=== PATIENT | male | born 1965 | race Caucasian/White ===

== ENCOUNTER 2018-10-10 11:56 | Emergency (ER) | payer OTHER ==
[~2018-10-10] VITALS: Ht 182.9 cm; Wt 104.3 kg
[~2018-10-10 11:56] MED LIST: ASPIRIN EC81 M1; FLONASE 0.05%50 MCG NS; ZPAK PO
[2018-10-10] MEDS ORDERED: HYDROCHLOROTH12.5 M1 PO (12:16)
[2018-10-10] MEDS ORDERED: LIPITOR 20 MG T20 M1 PO (12:16)
[2018-10-10] MEDS ORDERED: OMEPRAZOLE40 MG PO (12:17)
[2018-10-10] MEDS ORDERED: COZAAR 25 MG TA25 M2 PO (12:17)
[2018-10-10 13:02] LABS: ABSOLUTE BASOPHILS 0.1 thou/uL (0.0-0.2); ABSOLUTE EOSINOPHILS 0.5 thou/uL (0.0-0.7); ABSOLUTE LYMPHOCYTES 1.5 thou/uL (0.8-5.3); ABSOLUTE MONOCYTES 0.5 thou/uL (0.0-1.2); ABSOLUTE NEUTROPHILS 3.4 thou/uL (1.6-8.1); EOSINOPHILS 8.7 %; HEMATOCRIT 44.6 % (42.0-52.0); HEMOGLOBIN 15.2 gm/dL (14.0-18.0); LYMPHOCYTES 25.3 %; MCHC 34.1 g/dL (28.0-37.0); MONOCYTES 8.2 %; MPV 8.7 fl. (7.2-11.1); NUCLEATED RBCS 0 /100WBC; PLATELET COUNT* 334 thou/uL (150-400); POLYS 56.8 %; RBC 5.07 mil/uL (4.50-6.00); RDW-CV 13.3 % (10.5-14.5)
[2018-10-10 13:25] LABS: ANION GAP 9 mmol/L (7-16); BUN 4 mg/dL (7-18); CALCIUM 8.9 mg/dL (8.5-10.1); CHLORIDE 103 mmol/L (98-107); CO2 29 mmol/L (21-32); CREATININE 0.8 mg/dL (0.6-1.3); GLUCOSE 99 mg/dL (70-99); POTASSIUM 3.2 mmol/L (3.5-5.1); SODIUM 141 mmol/L (136-145)
[2018-10-10 13:29] LABS: ALBUMIN 3.7 g/dL (3.4-5.0); ALKALINE PHOSPHATASE 63 U/L (46-116); SGOT 21 U/L (15-37); SGPT 31 U/L (30-65); TOTAL BILIRUBIN 0.4 mg/dL (<0.1-1.0); TOTAL PROTEIN 7.3 g/dL (6.4-8.2); TROPONIN-I LEVEL <0.06 ng/mL (<0.06)
--- NOTE | 2018-10-10 14:34 | EKG ---
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: : 1965 Requested By: Chance Jansen Order Number: [id number] MD: Ildefonso Craft Measurements Intervals [place] Rate: 70 P: [place]: QRS: 42 QRSD: 99 T: 61 QT: 430 QTc: 464 Interpretive Statements sinus rhythm artifact noted Baseline wander in lead(s) I,II,III,aVR,aVL Compared to ECG 08/25/2011 13:10:39 no change Electronically Signed On 10-10-2018 14:34:28 RESERVOIR ENGINEERING CONSULTANT by Ildefonso Craft [email or web address] <ELECTRONICALLY SIGNED> By: Ildefonso Craft MD, [facility] 10/10/18 1434 1237 1237 Ildefonso Craft MD, FAC /EPI
[2018-10-10 15:29] VITALS: BP 142/86
--- NOTE | 2018-10-10 16:51 | EKG ---
[place] [address] ELECTROCARDIOGRAM REPORT Name: AHMET MONTES Room: [facility]#: [id number] Admission: 10/10/18 Attend Phys: Discharge: 10/10/18 Date of : 65 Report #: [id number] THIS REPORT FOR: //name// [facility] ED Test Date: 2018-10-10 Test Time: 14:20:14 Pat Name: AHMET MONTES Department: Room: Gender: M Delivery Technician: GHASSAN : 1965 Requested By: Javon Giraldo Order Number: [id number] MD: Ahmet Bass Measurements Intervals [place] Rate: 64 P: 49 WI: 140 QRS: 17 QRSD: 101 T: 22 QT: 410 QTc: 423 Interpretive Statements Sinus rhythm Abnormal R-wave progression, early transition Compared to ECG 10/10/2018 12:37:43 No significant changes Electronically Signed On 10-10-2018 16:51:02 METROLOGY ENGINEER by Ahmet Bass [email or web address] <ELECTRONICALLY SIGNED> By: Ahmet Bass MD, [facility] 10/10/18 1651 1420 1420 Ahmet Bass MD, FACC /EPI
== END 2018-10-10 15:29 | disposition home or self-care (01) ==
LOC: M.ERS 11:56
PROVIDERS: Emergency Medicine Emergency Medical Services
DX: R00.2 Palpitations (principal); R42 Dizziness and giddiness; F41.0 Panic disorder [episodic paroxysmal anxiety]; I10 Essential (primary) hypertension; F32.9 Major depressive disorder, single episode, unspecified; Z87.891 Personal history of nicotine dependence; Z85.51 Personal history of malignant neoplasm of bladder